=== PATIENT | female | born 1940 | race Caucasian/White ===

== ENCOUNTER 2016-08-11 08:34 | Inpatient (IN) | payer OTHER ==
[2016-08-11] VITALS (12 sets, daily range): BP systolic 136–199; BP diastolic 77–152
[~2016-08-11] VITALS: Ht 165.1 cm; Wt 72.6 kg
[2016-08-11 08:55] LABS: CREATININE 1.1 mg/dL (0.6-1.3)
[2016-08-11 08:56] LABS: BASOPHIL COUNT 0.1 K/uL (0-0.1); EOSINOPHIL (%) 1.1 % (0-5); EOSINOPHIL COUNT 0.1 K/uL (0-0.3); HEMATOCRIT 45.5 % (36.0-46.0); IMMATURE GRANULOCYTE (%) 0.4 % (0.0-0.7); INSTRUMENT ABS NEUTROPHIL CT 8.2 K/uL; LYMPHOCYTE COUNT 1.4 K/uL (1.0-2.8); MCH 31.5 PG (29.0-34.0); MCHC 34.1 G/DL (30.0-36.0); MCV 92.5 FL (83-99); MEAN PLAT.VOLUME 9.8 uM^3 (9.5-12.4); MONOCYTE (%) 6.2 % (3-12); MONOCYTE COUNT 0.7 K/uL (0-0.8); NEUTROPHIL (%) 78.8 % (45-76); NEUTROPHIL COUNT 8.2 K/uL (1.8-6.4); PLATELET COUNT 274 K/uL (156-360); RBC DIS.WIDTH-SD 44.2 % (39-53); RED BLOOD COUNT 4.92 M/uL (3.80-5.20); WHITE BLOOD COUNT 10.4 K/uL (4.1-10.2)
[2016-08-11 09:13] LABS: AMYLASE 83 IU/L (1-118); CHLORIDE 104 mEq/L (99-109); PROTHROMBIN TIME 10.5 (9.2-11.2); PTT 27.6 (25-32); SODIUM 137 mEq/L (136-147)
[2016-08-11 09:14] LABS: GLUCOSE 181 mg/dL (70-99)
[2016-08-11 09:16] LABS: ANION GAP 10 MEQ/L (2-14)
[2016-08-11 09:18] LABS: GFR ESTIMATE (CALCULATED) 46 mL/min/; SERUM ETHYL ALCOHOL < 10 mg/dL
[2016-08-11 09:19] LABS: UREA NITROGEN (BUN) 15 mg/dL (9-23)
[2016-08-11 09:21] LABS: LIPASE 47 U/L (1.0-51.0)
[2016-08-11 09:22] LABS: TROP-I INTERPRETATION NEGATIVE; TROPONIN-I < 0.01 ng/mL (0.0-0.30)
[2016-08-11 10:01] LABS: ADD MIUA? YES; BILIRUBIN NEGATIVE; BLOOD SMALL; COLOR YELLOW ((YELLOW)); GLUCOSE (STRIP) NEGATIVE; KETONES NEGATIVE; LEUKOCYTES NEGATIVE; NITRITE NEGATIVE; PROTEIN (STRIP) NEGATIVE; SPECIFIC GRAVITY 1.014 (1.000-1.030); UROBILINOGEN 0.2 MG/DL (0.2-1.0)
[2016-08-11 10:04] LABS: BACTERIA NONE SEEN /HPF; EPITHELIAL CELLS NONE SEEN /HPF; MUCUS NONE SEEN /LPF; RED BLOOD CELLS 0-5 /HPF (0-5); UCUL ADDED? NO; WHITE BLOOD CELLS 0-5 /HPF (0-5)
[2016-08-11 10:09] LABS: AMPHETAMINE NEGATIVE (500 ng/mL); BARBITURATES NEGATIVE (200 ng/mL); BENZODIAZEPINES NEGATIVE (150 ng/mL); COCAINE NEGATIVE (150 ng/mL); INTERNAL CONTROLS VALID? YES; METHADONE NEGATIVE (200 ng/mL); METHAMPHETAMINE NEGATIVE (500 ng/mL); OPIATES (MORPHINE) NEGATIVE (100 ng/mL); OXYCODONE NEGATIVE (100 ng/mL); PHENCYCLIDINE NEGATIVE (25 ng/mL); PROPOXYPHENE NEGATIVE (300 ng/mL); THC CANNABINOIDS NEGATIVE (50 ng/mL); TRICYCLIC ANTIDEPRESSANTS NEGATIVE (300 ng/mL)
[2016-08-11 15:58] LABS: METH RESISTANT S AUREUS PCR NEGATIVE (NEGATIVE)
[2016-08-11 16:09] LABS: PROBE CHECK PASS; SPECIMEN PROCESSING CONTROL PASS
[2016-08-11 17:28] LABS: HDL CHOLESTEROL 50 MG/DL (Desirable>=50); LDL CHOLESTEROL 136 mg/dL (Desirable<100); NON-HDL CHOLESTEROL 151 mg/dL (Desirable<160); TOTAL CHOLESTEROL 201 mg/dL (Desirable<200); TRIGLYCERIDES 73 MG/DL (Normal: <150)
[2016-08-11 17:54] LABS: Estimated Average Glucose 128 mg/dL (70-123); HEMOGLOBIN A1c (GLYCOHEMOGLOB) 6.1 % HGB (Below 5.7)
[2016-08-12] VITALS (13 sets, daily range): BP systolic 147–200; BP diastolic 62–100
[2016-08-12 06:47] LABS: ANION GAP 10 MEQ/L (2-14); CHLORIDE 107 MEQ/L (99-109); GFR ESTIMATE (CALCULATED) 57 mL/min/; POTASSIUM 4.1 MEQ/L (3.7-5.4); SAMPLE HEMOLYSIS CHECK 0; SAMPLE ICTERIC CHECK 0; SAMPLE LIPEMIA CHECK 0; SODIUM 140 MEQ/L (136-147); UREA NITROGEN (BUN) 16 mg/dL (9-23)
[2016-08-12 07:11] LABS: EOSINOPHIL (%) 0.8 % (0-5); EOSINOPHIL COUNT 0.1 K/uL (0-0.3); HEMATOCRIT 42.9 % (36.0-46.0); IMMATURE GRANULOCYTE (%) 0.4 % (0.0-0.7); INSTRUMENT ABS NEUTROPHIL CT 6.7 K/uL; LYMPHOCYTE COUNT 2.2 K/uL (1.0-2.8); MCH 31.7 PG (29.0-34.0); MCHC 34.3 G/DL (30.0-36.0); MCV 92.5 FL (83-99); MEAN PLAT.VOLUME 10.3 uM^3 (9.5-12.4); MONOCYTE (%) 11.9 % (3-12); MONOCYTE COUNT 1.2 K/uL (0-0.8); NEUTROPHIL (%) 65.2 % (45-76); NEUTROPHIL COUNT 6.7 K/uL (1.8-6.4); PLATELET COUNT 275 K/uL (156-360); RBC DIS.WIDTH-CV 12.8 % (11.8-14.6); RBC DIS.WIDTH-SD 43.9 % (39-53); RED BLOOD COUNT 4.64 M/uL (3.80-5.20); WHITE BLOOD COUNT 10.3 K/uL (4.1-10.2)
[2016-08-12 08:12] LABS: GLUCOSE 97 mg/dL (70-99)
[2016-08-13 00:13] VITALS: BP 188/90
[2016-08-13 04:00] VITALS: BP 166/78
[2016-08-13 08:07] VITALS: BP 146/69
[2016-08-13 16:09] VITALS: BP 143/87
[2016-08-13 20:01] VITALS: BP 178/92
[2016-08-14] VITALS: BP 168/90
[2016-08-14 05:00] VITALS: BP 149/71
[2016-08-14 08:19] VITALS: BP 152/71
[2016-08-14 11:29] VITALS: BP 152/71
[2016-08-14 16:34] VITALS: BP 171/81
[2016-08-14 20:27] VITALS: BP 111/53
[2016-08-15 00:02] VITALS: BP 189/94
[2016-08-15 07:00] VITALS: BP 147/86
[2016-08-15 15:19] VITALS: BP 192/74
[2016-08-15 20:38] VITALS: BP 154/82
[2016-08-16 04:00] VITALS: BP 155/80
[2016-08-16 07:48] VITALS: BP 120/74
[2016-08-16 16:05] VITALS: BP 130/84
[2016-08-17] VITALS: BP 141/71
[2016-08-17 07:00] VITALS: BP 144/71
[2016-08-17] MEDS ORDERED: FAMOTIDINE20 MG PO (09:31)
[2016-08-17] MEDS ORDERED: ATORVASTATIN CA80 MG PO (09:31)
[2016-08-17] MEDS ORDERED: ASPIR-LOW81 MG PO (09:31)
[2016-08-17] MEDS ORDERED: ALPRAZOLAM0.25 M2 PO (09:31)
[2016-08-17] MEDS ORDERED: AMLODIPINE BESYL5 MG PO (09:31)
[2016-08-17 11:50] VITALS: BP 150/85
== END 2016-08-17 13:20 | DRG 65 ==
LOC: EME → EDBD 08:34 → 5SOUTH 12:36 → EDOF 12:36 → 4WEST 12:36 → 5SOUTH 08-12 16:13
PROVIDERS: Emergency Medicine; Internal Medicine Pulmonary Disease
DX: I63.9 Cerebral infarction, unspecified (principal); R73.9 Hyperglycemia, unspecified; I10 Essential (primary) hypertension; G81.94 Hemiplegia, unspecified affecting left nondominant side; R47.01 Aphasia; R13.10 Dysphagia, unspecified; R47.1 Dysarthria and anarthria; J44.9 Chronic obstructive pulmonary disease, unspecified; F17.210 Nicotine dependence, cigarettes, uncomplicated; W07.XXXA Fall from chair, initial encounter; Y92.009 Unspecified place in unspecified non-institutional (private) residence as the place of occurrence of the external cause; R29.709 NIHSS score 9; S40.012A Contusion of left shoulder, initial encounter
CPT/HCPCS: 70450; 70496; 70498; 70551; 71010; 73020; 74230; 80047; 80048; 80061; 81003; 82150; 83036; 83690; 84484; 85025; 85610; 85730; 86900; 86901; 87641; 92526 GN; 92610 GN; 92611 GN; 93005; 93306; 94640; 97530 GO; 97530 GP; 99202; 99281; 99285; G0480; J0360; J2060; J2997

== ENCOUNTER 2016-11-21 13:59 | Inpatient (IN) | payer OTHER ==
[~2016-11-21] VITALS: Ht 165.1 cm; Wt 69.0 kg
[~2016-11-21 13:59] MED LIST: ALPRAZOLAM0.25 M2 PO; AMLODIPINE BESYL5 MG PO; ASPIR-LOW81 MG PO; ATORVASTATIN CA80 MG PO; FAMOTIDINE20 MG PO
[2016-11-21 14:27] LABS: HEMATOCRIT 29.4 % (36.0-46.0); MCH 31.3 PG (29.0-34.0); MCV 92.2 FL (83-99); MEAN PLAT.VOLUME 9.8 uM^3 (9.5-12.4); PLATELET COUNT 257 K/uL (156-360); RBC DIS.WIDTH-CV 12.2 % (11.8-14.6); RBC DIS.WIDTH-SD 41.3 % (39-53); RED BLOOD COUNT 3.19 M/uL (3.80-5.20); WHITE BLOOD COUNT 7.7 K/uL (4.1-10.2)
[2016-11-21] MEDS ORDERED: AMLODIPINE BESY10 MG PO (15:49)
[2016-11-21] MEDS ORDERED: LO-DOSE ASPIRIN81 M2 PO (15:50)
[2016-11-21] MEDS ORDERED: FAMOTIDINE20 MG PO (15:51)
[2016-11-21] MEDS ORDERED: SENNA PLUS TAB1 EACH PO (15:54)
[2016-11-21] MEDS ORDERED: REMERON30 M2 PO (15:54)
[2016-11-21] MEDS ORDERED: TYLENOL REGULA325 MG PO (15:55)
[2016-11-21] MEDS ORDERED: COLACE CLEAR50 MG PO (15:57)
[2016-11-21] MEDS ORDERED: DULCOLAX10 MG PR (15:57)
[2016-11-21] MEDS ORDERED: MILK OF MAGN PO (15:59)
[2016-11-21] MEDS ORDERED: MIRALAX255 GM PO (15:59)
[2016-11-21] MEDS ORDERED: TUMS500 MG PO (16:02)
[2016-11-21 16:20] LABS: CHLORIDE 105 mEq/L (99-109); POTASSIUM 3.8 mEq/L (3.7-5.4); SODIUM 140 mEq/L (136-147)
[2016-11-21 16:22] LABS: GLUCOSE 102 mg/dL (70-99)
[2016-11-21 16:23] LABS: ANION GAP 13 MEQ/L (2-14)
[2016-11-21 16:26] LABS: GFR ESTIMATE (CALCULATED) 10 mL/min/
[2016-11-21 16:27] LABS: UREA NITROGEN (BUN) 42 mg/dL (9-23)
[2016-11-21 19:46] VITALS: BP 144/93
[2016-11-21 20:23] LABS: ADD MIUA? YES; BILIRUBIN NEGATIVE; BLOOD SMALL; COLOR STRAW ((YELLOW)); GLUCOSE (STRIP) NEGATIVE; KETONES NEGATIVE; LEUKOCYTES NEGATIVE; NITRITE NEGATIVE; PROTEIN (STRIP) NEGATIVE; SPECIFIC GRAVITY 1.005 (1.000-1.030); UROBILINOGEN 0.2 MG/DL (0.2-1.0)
[2016-11-21 20:27] LABS: BACTERIA NONE SEEN /HPF; EPITHELIAL CELLS NONE SEEN /HPF; MUCUS NONE SEEN /LPF; RED BLOOD CELLS 0-5 /HPF (0-5); UCUL ADDED? NO; WHITE BLOOD CELLS 0-5 /HPF (0-5)
[2016-11-21 23:38] VITALS: BP 174/72
[2016-11-22 04:01] VITALS: BP 147/65
[2016-11-22 06:17] LABS: ANION GAP 11 MEQ/L (2-14); CHLORIDE 111 MEQ/L (99-109); GFR ESTIMATE (CALCULATED) 10 mL/min/; GLUCOSE 90 mg/dL (70-99); POTASSIUM 3.8 MEQ/L (3.7-5.4); SAMPLE HEMOLYSIS CHECK 0; SAMPLE ICTERIC CHECK 0; SAMPLE LIPEMIA CHECK 0; SODIUM 144 MEQ/L (136-147); UREA NITROGEN (BUN) 45 mg/dL (9-23)
[2016-11-22 07:51] VITALS: BP 147/71
[2016-11-22 11:57] VITALS: BP 193/82
[2016-11-22 15:54] VITALS: BP 163/74
[2016-11-22 20:00] VITALS: BP 170/81
[2016-11-23 00:12] VITALS: BP 166/70
[2016-11-23 04:16] VITALS: BP 135/64
[2016-11-23 07:25] LABS: ANION GAP 10 MEQ/L (2-14); CHLORIDE 109 MEQ/L (99-109); GFR ESTIMATE (CALCULATED) 8 mL/min/; GLUCOSE 88 mg/dL (70-99); POTASSIUM 3.8 MEQ/L (3.7-5.4); SAMPLE HEMOLYSIS CHECK 0; SAMPLE ICTERIC CHECK 0; SAMPLE LIPEMIA CHECK 0; SODIUM 142 MEQ/L (136-147); UREA NITROGEN (BUN) 47 mg/dL (9-23)
[2016-11-23 07:27] VITALS: BP 178/80
[2016-11-23 11:57] VITALS: BP 131/68
[2016-11-23 15:47] VITALS: BP 143/70
[2016-11-24 00:03] VITALS: BP 146/71
[2016-11-24 07:02] LABS: HEMATOCRIT 24.6 % (36.0-46.0); MCH 31.7 PG (29.0-34.0); MCHC 33.7 G/DL (30.0-36.0); MCV 93.9 FL (83-99); MEAN PLAT.VOLUME 10.3 uM^3 (9.5-12.4); PLATELET COUNT 236 K/uL (156-360); RBC DIS.WIDTH-CV 12.4 % (11.8-14.6); RBC DIS.WIDTH-SD 42.5 % (39-53); RED BLOOD COUNT 2.62 M/uL (3.80-5.20); WHITE BLOOD COUNT 7.2 K/uL (4.1-10.2)
[2016-11-24 07:23] LABS: ANION GAP 10 MEQ/L (2-14); CHLORIDE 107 MEQ/L (99-109); GFR ESTIMATE (CALCULATED) 8 mL/min/; GLUCOSE 99 mg/dL (70-99); POTASSIUM 3.9 MEQ/L (3.7-5.4); SAMPLE HEMOLYSIS CHECK 0; SAMPLE ICTERIC CHECK 0; SAMPLE LIPEMIA CHECK 0; SODIUM 139 MEQ/L (136-147); UREA NITROGEN (BUN) 51 mg/dL (9-23)
[2016-11-24 08:27] VITALS: BP 157/70
[2016-11-24 16:05] VITALS: BP 133/58
[2016-11-25] VITALS: BP 146/70
[2016-11-25 07:29] VITALS: BP 115/56
[2016-11-25 09:30] LABS: HEMATOCRIT 24.9 % (36.0-46.0); MCH 32.5 PG (29.0-34.0); MCHC 34.9 G/DL (30.0-36.0); MCV 92.9 FL (83-99); MEAN PLAT.VOLUME 10.4 uM^3 (9.5-12.4); PLATELET COUNT 282 K/uL (156-360); RBC DIS.WIDTH-CV 12.3 % (11.8-14.6); RBC DIS.WIDTH-SD 41.7 % (39-53); RED BLOOD COUNT 2.68 M/uL (3.80-5.20); WHITE BLOOD COUNT 8.6 K/uL (4.1-10.2)
[2016-11-25 09:55] LABS: ANION GAP 12 MEQ/L (2-14); CHLORIDE 108 MEQ/L (99-109); GFR ESTIMATE (CALCULATED) 8 mL/min/; GLUCOSE 102 mg/dL (70-99); POTASSIUM 3.6 MEQ/L (3.7-5.4); SAMPLE HEMOLYSIS CHECK 0; SAMPLE ICTERIC CHECK 0; SAMPLE LIPEMIA CHECK 0; SODIUM 143 MEQ/L (136-147); UREA NITROGEN (BUN) 51 mg/dL (9-23)
[2016-11-25 15:47] VITALS: BP 155/70
[2016-11-25 23:47] VITALS: BP 162/67
[2016-11-26 06:46] LABS: ANION GAP 8 MEQ/L (2-14); CHLORIDE 111 MEQ/L (99-109); GFR ESTIMATE (CALCULATED) 10 mL/min/; GLUCOSE 91 mg/dL (70-99); SAMPLE HEMOLYSIS CHECK 0; SAMPLE ICTERIC CHECK 0; SAMPLE LIPEMIA CHECK 0; SODIUM 145 MEQ/L (136-147); UREA NITROGEN (BUN) 45 mg/dL (9-23)
[2016-11-26 07:27] VITALS: BP 145/63
[2016-11-26 15:15] VITALS: BP 123/61
[2016-11-27] VITALS: BP 147/65
[2016-11-27 07:57] VITALS: BP 168/81
[2016-11-27 09:57] LABS: ANION GAP 7 MEQ/L (2-14); CHLORIDE 107 MEQ/L (99-109); GFR ESTIMATE (CALCULATED) 16 mL/min/; POTASSIUM 3.7 MEQ/L (3.7-5.4); SAMPLE HEMOLYSIS CHECK 0; SAMPLE ICTERIC CHECK 0; SAMPLE LIPEMIA CHECK 0; SODIUM 141 MEQ/L (136-147); UREA NITROGEN (BUN) 29 mg/dL (9-23)
[2016-11-27 09:58] LABS: GLUCOSE 114 mg/dL (70-99)
[2016-11-27 14:54] LABS: HEMATOCRIT 25.2 % (36.0-46.0); MCHC 34.9 G/DL (30.0-36.0); MCV 94.4 FL (83-99); MEAN PLAT.VOLUME 10.1 uM^3 (9.5-12.4); PLATELET COUNT 317 K/uL (156-360); RBC DIS.WIDTH-CV 12.6 % (11.8-14.6); RBC DIS.WIDTH-SD 43.7 % (39-53); RED BLOOD COUNT 2.67 M/uL (3.80-5.20); WHITE BLOOD COUNT 6.9 K/uL (4.1-10.2)
[2016-11-27 15:13] VITALS: BP 168/70
[2016-11-28] VITALS: BP 155/66
[2016-11-28 06:02] LABS: HEMATOCRIT 24.4 % (36.0-46.0); MCH 31.2 PG (29.0-34.0); MCHC 33.2 G/DL (30.0-36.0); MCV 93.8 FL (83-99); PLATELET COUNT 307 K/uL (156-360); RBC DIS.WIDTH-CV 12.4 % (11.8-14.6); WHITE BLOOD COUNT 7.8 K/uL (4.1-10.2)
[2016-11-28 06:32] LABS: ANION GAP 8 MEQ/L (2-14); CHLORIDE 106 MEQ/L (99-109); GFR ESTIMATE (CALCULATED) 20 mL/min/; GLUCOSE 104 mg/dL (70-99); POTASSIUM 3.8 MEQ/L (3.7-5.4); SAMPLE HEMOLYSIS CHECK 0; SAMPLE ICTERIC CHECK 0; SAMPLE LIPEMIA CHECK 0; SODIUM 141 MEQ/L (136-147); UREA NITROGEN (BUN) 21 mg/dL (9-23)
[2016-11-28 07:44] VITALS: BP 173/72
[2016-11-28 16:00] VITALS: BP 148/64
[2016-11-29] VITALS: BP 152/70
[2016-11-29 07:04] LABS: HEMATOCRIT 25.9 % (36.0-46.0); MCH 32.4 PG (29.0-34.0); MCV 95.2 FL (83-99); MEAN PLAT.VOLUME 10.2 uM^3 (9.5-12.4); PLATELET COUNT 358 K/uL (156-360); RBC DIS.WIDTH-CV 12.6 % (11.8-14.6); RBC DIS.WIDTH-SD 43.7 % (39-53); RED BLOOD COUNT 2.72 M/uL (3.80-5.20); WHITE BLOOD COUNT 9.5 K/uL (4.1-10.2)
[2016-11-29 07:23] VITALS: BP 126/59
[2016-11-29 07:36] LABS: ANION GAP 8 MEQ/L (2-14); CHLORIDE 107 MEQ/L (99-109); GFR ESTIMATE (CALCULATED) 24 mL/min/; GLUCOSE 96 mg/dL (70-99); SAMPLE HEMOLYSIS CHECK 0; SAMPLE ICTERIC CHECK 0; SAMPLE LIPEMIA CHECK 0; SODIUM 143 MEQ/L (136-147); UREA NITROGEN (BUN) 20 mg/dL (9-23)
[2016-11-29 15:04] VITALS: BP 133/64
[2016-11-29 23:59] VITALS: BP 122/60
[2016-11-30 07:52] VITALS: BP 142/70
[2016-11-30 08:42] LABS: HEMATOCRIT 26.5 % (36.0-46.0); MCH 31.8 PG (29.0-34.0); MCHC 33.2 G/DL (30.0-36.0); MCV 95.7 FL (83-99); MEAN PLAT.VOLUME 9.9 uM^3 (9.5-12.4); PLATELET COUNT 359 K/uL (156-360); RBC DIS.WIDTH-CV 12.4 % (11.8-14.6); RBC DIS.WIDTH-SD 43.5 % (39-53); RED BLOOD COUNT 2.77 M/uL (3.80-5.20); WHITE BLOOD COUNT 9.6 K/uL (4.1-10.2)
[2016-11-30 09:07] LABS: ANION GAP 8 MEQ/L (2-14); CHLORIDE 108 MEQ/L (99-109); GFR ESTIMATE (CALCULATED) 29 mL/min/; GLUCOSE 95 mg/dL (70-99); SAMPLE HEMOLYSIS CHECK 0; SAMPLE ICTERIC CHECK 0; SAMPLE LIPEMIA CHECK 0; SODIUM 143 MEQ/L (136-147); UREA NITROGEN (BUN) 20 mg/dL (9-23)
[2016-11-30 15:14] VITALS: BP 129/61
[2016-11-30] MEDS ORDERED: LOPRESSOR25 MG PO (15:37)
[2016-11-30 22:00] VITALS: BP 141/66
[2016-11-30 23:57] VITALS: BP 135/65
[2016-12-01 07:59] LABS: HEMATOCRIT 25.3 % (36.0-46.0); MCH 32.3 PG (29.0-34.0); MCHC 33.6 G/DL (30.0-36.0); MCV 96.2 FL (83-99); MEAN PLAT.VOLUME 10.1 uM^3 (9.5-12.4); PLATELET COUNT 373 K/uL (156-360); RBC DIS.WIDTH-CV 12.8 % (11.8-14.6); RED BLOOD COUNT 2.63 M/uL (3.80-5.20); WHITE BLOOD COUNT 9.2 K/uL (4.1-10.2)
[2016-12-01 08:27] LABS: ANION GAP 9 MEQ/L (2-14); CHLORIDE 107 MEQ/L (99-109); GFR ESTIMATE (CALCULATED) 31 mL/min/; GLUCOSE 98 mg/dL (70-99); POTASSIUM 4.1 MEQ/L (3.7-5.4); SAMPLE HEMOLYSIS CHECK 0; SAMPLE ICTERIC CHECK 0; SAMPLE LIPEMIA CHECK 0; SODIUM 141 MEQ/L (136-147); UREA NITROGEN (BUN) 20 mg/dL (9-23)
[2016-12-01 08:44] VITALS: BP 129/70
[2016-12-01 16:08] VITALS: BP 115/65
[2016-12-01 23:40] VITALS: BP 136/63
[2016-12-02 08:59] LABS: HEMATOCRIT 27.5 % (36.0-46.0); MCH 32.3 PG (29.0-34.0); MCHC 33.5 G/DL (30.0-36.0); MCV 96.5 FL (83-99); MEAN PLAT.VOLUME 10.1 uM^3 (9.5-12.4); PLATELET COUNT 421 K/uL (156-360); RBC DIS.WIDTH-CV 12.6 % (11.8-14.6); RBC DIS.WIDTH-SD 44.2 % (39-53); RED BLOOD COUNT 2.85 M/uL (3.80-5.20); WHITE BLOOD COUNT 8.2 K/uL (4.1-10.2)
[2016-12-02 09:25] LABS: ANION GAP 8 MEQ/L (2-14); CHLORIDE 106 MEQ/L (99-109); GFR ESTIMATE (CALCULATED) 33 mL/min/; GLUCOSE 139 mg/dL (70-99); POTASSIUM 4.2 MEQ/L (3.7-5.4); SAMPLE HEMOLYSIS CHECK 0; SAMPLE ICTERIC CHECK 0; SAMPLE LIPEMIA CHECK 0; SODIUM 140 MEQ/L (136-147); UREA NITROGEN (BUN) 19 mg/dL (9-23)
== END 2016-12-02 14:40 | DRG 669 ==
LOC: EME 13:59 → EDOF 15:01 → 5SOUTH 15:01 → ENRESERV 15:07 → 5SOUTH 16:11 → ENPENDDIS 12-02 14:30 → 5SOUTH 12-02 14:40
PROVIDERS: Emergency Medicine; Internal Medicine; Nurse Practitioner Adult Health; Physician Assistant Medical; Student in an Organized Health Care Education/Training Program
DX: N17.9 Acute kidney failure, unspecified (principal); I10 Essential (primary) hypertension; N13.30 Unspecified hydronephrosis; F03.90 Unspecified dementia, unspecified severity, without behavioral disturbance, psychotic disturbance, mood disturbance, and anxiety; C53.9 Malignant neoplasm of cervix uteri, unspecified; N32.0 Bladder-neck obstruction; R19.09 Other intra-abdominal and pelvic swelling, mass and lump; K44.9 Diaphragmatic hernia without obstruction or gangrene; R33.9 Retention of urine, unspecified; E87.6 Hypokalemia; N13.5 Crossing vessel and stricture of ureter without hydronephrosis; E78.5 Hyperlipidemia, unspecified; D63.8 Anemia in other chronic diseases classified elsewhere; I69.354 Hemiplegia and hemiparesis following cerebral infarction affecting left non-dominant side; Z87.891 Personal history of nicotine dependence; Z79.82 Long term (current) use of aspirin; Z91.19 Patient's noncompliance with other medical treatment and regimen
CPT/HCPCS: 74176; 74420; 76770; 80048; 80048 91; 81003; 83930; 83935; 84295; 84300; 85027; 88305; 88341 TC; 88342 TC; 97530 GO; 97530 GP; 99281; 99285; C1758; J0131; J0360; J0690; J1100; J1644; J2405; J3010; J7030; J7040

== ENCOUNTER 2017-02-10 09:00 | Emergency (ER) | payer OTHER ==
[2017-02-10] VITALS (7 sets, daily range): BP systolic 135–159; BP diastolic 72–100
[~2017-02-10] VITALS: Ht 165.1 cm; Wt 75.3 kg
[~2017-02-10 09:00] MED LIST changes: +AMLODIPINE BESY10 MG PO; +CALCIUM 500 MG1 EACH PO; +COLACE CLEAR50 MG PO; +COMPAZINE10 MG PO; +DEPAKOTE SPRIN125 MG PO; +DULCOLAX10 MG PR; +LIPITOR80 MG PO; +LO-DOSE ASPIRIN81 M2 PO; +LOPRESSOR25 MG PO; +MILK OF MAGN PO; +MIRALAX255 GM PO; +REMERON30 M2 PO; +SENNA PLUS TAB1 EACH PO; +TUMS500 MG PO; +TYLENOL REGULA325 MG PO; +XANAX0.25 MG PO; +ZOFRAN8 MG PO
[2017-02-10 09:55] LABS: EOSINOPHIL (%) 1.3 % (0-5); EOSINOPHIL COUNT 0.1 K/uL (0-0.3); HEMATOCRIT 23.1 % (36.0-46.0); IMMATURE GRANULOCYTE (%) 0.4 % (0.0-0.7); INSTRUMENT ABS NEUTROPHIL CT 3.8 K/uL; LYMPHOCYTE COUNT 0.2 K/uL (1.0-2.8); MCH 30.7 PG (29.0-34.0); MCHC 33.8 G/DL (30.0-36.0); MCV 90.9 FL (83-99); MEAN PLAT.VOLUME 9.2 uM^3 (9.5-12.4); MONOCYTE (%) 11.4 % (3-12); MONOCYTE COUNT 0.5 K/uL (0-0.8); NEUTROPHIL COUNT 3.8 K/uL (1.8-6.4); PLATELET COUNT 121 K/uL (156-360); RBC DIS.WIDTH-CV 17.1 % (11.8-14.6); RBC DIS.WIDTH-SD 53.6 % (39-53); RED BLOOD COUNT 2.54 M/uL (3.80-5.20); WHITE BLOOD COUNT 4.6 K/uL (4.1-10.2)
[2017-02-10 10:03] LABS: CHLORIDE 108 mEq/L (99-109); POTASSIUM 3.2 mEq/L (3.7-5.4); SODIUM 141 mEq/L (136-147)
[2017-02-10 10:05] LABS: GLUCOSE 162 mg/dL (70-99)
[2017-02-10 10:06] LABS: ANION GAP 10 MEQ/L (2-14)
[2017-02-10 10:07] LABS: TOTAL BILIRUBIN 0.3 mg/dL (0.0-1.0)
[2017-02-10 10:09] LABS: ALKALINE PHOSPHATASE 57 IU/L (3-129); GFR ESTIMATE (CALCULATED) 57 mL/min/
[2017-02-10 10:10] LABS: UREA NITROGEN (BUN) 16 mg/dL (9-23)
[2017-02-10 10:15] LABS: TROP-I INTERPRETATION NEGATIVE; TROPONIN-I 0.01 ng/mL (0.0-0.30)
== END 2017-02-10 19:42 ==
LOC: EME 09:00
PROVIDERS: Physician Assistant
PROC: 30233N1 Transfusion of Nonautologous Red Blood Cells into Peripheral Vein, Percutaneous Approach (ICD-10-PCS; principal; 2017-02-10)
DX: D64.9 Anemia, unspecified (principal); R55 Syncope and collapse; C53.9 Malignant neoplasm of cervix uteri, unspecified; E87.6 Hypokalemia; I69.354 Hemiplegia and hemiparesis following cerebral infarction affecting left non-dominant side; K21.9 Gastro-esophageal reflux disease without esophagitis; F32.9 Major depressive disorder, single episode, unspecified; Z87.891 Personal history of nicotine dependence; Z92.3 Personal history of irradiation; Z92.21 Personal history of antineoplastic chemotherapy; Z91.81 History of falling
CPT/HCPCS: 70450; 72125; 74177; 80053; 81003; 84484; 85025; 86850; 86900; 86901; 86920; 93005; 99281; 99285; P9016